=== PATIENT | male | born 1945 | race Caucasian/White ===

== ENCOUNTER → 2016-12-17 | Outpatient (CLI) | payer MEDICARE ==
--- NOTE | 2016-12-17 10:31 | REP ---
LOW-DOSE LUNG SCREENING CT: 12/17/2016. Clinical history: Personal history of nicotine dependence. Findings: There are no prior studies. Low-dose lung CT protocol with lung windows presented at 3 mm slice thickness and interval. Tenant Coordinator image also reviewed. Lung gutierrez are quite well inflated. There are bilateral lateral pleural plaques with pleural thickening. There are a few scattered plaques with calcifications in the anterior right upper and left upper lung zones, along the posterior axillary line in the right mid lung and without evidence of calcified granuloma in the lung. There is a superior segment pleural-based nodule or calcified granuloma on image 53 in left lower lobe in the midclavicular line. Some minor apical scarring is noted. No parenchymal nodules or acute infiltrate. There is some subpleural fibrotic change posterolaterally in the mid and lower lung zones and mild. There is also some mild cylindrical bronchiectatic change with several segmental bronchi equal to or larger than adjacent segmental pulmonary arteries. No acute infiltrate or parenchymal lung mass. No widening of mediastinum. There is atherosclerotic calcification of the coronaries and the aorta. There are a few scattered calcifications. No mediastinal mass evident. Bones show no gross destructive lesion. There is no free air under the diaphragm. Impression: 1. There are some scattered pleural plaques bilaterally, a few with calcifications and one calcified nodule or calcified pleural plaque in the superior segment of the left lower lobe. No definite mediastinal nodes with calcification, lung mass, other pulmonary nodule or acute infiltrate. 2. Study is best categorized as negative, LungRADS category 1. No suspicious nodules or lung mass. Patients with this category have less than 1% probability of malignancy at this time. Recommend annual screening with low-dose CT. Signed by Yury Sultana MD 12/17/2016 04:11 P
== END ==
LOC: M RAD 09:25
PROVIDERS: ATTEND Internal Medicine Pulmonary Disease
DX: Z87.891 Personal history of nicotine dependence (principal); J92.9 Pleural plaque without asbestos

== ENCOUNTER → 2018-01-08 | Outpatient (CLI) | payer MEDICARE | LOC: M RAD 09:39 | DX: Z12.2 Encounter for screening for malignant neoplasm of respiratory organs (principal); Z87.891 Personal history of nicotine dependence; J92.9 Pleural plaque without asbestos; J98.4 Other disorders of lung | CPT/HCPCS: G0297 ==

== ENCOUNTER → 2019-12-21 | Outpatient (CLI) | payer MEDICARE ==
--- NOTE | 2020-01-11 09:22 | REP ---
CT STUDY OF THE CHEST: LOW-DOSE SCREENING STUDY HISTORY: Personal history of nicotine dependence. COMPARISON: CT studies from 01/08/2018 and 12/17/2016. CT FINDINGS: Preliminary digital vrt mechanic radiograph demonstrates median sternotomy wires and some overall hyperinflation. 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 These findings are unchanged. No pleural effusion or pleural-based mass lesion is seen. No significant pulmonary nodule or pulmonary parenchymal mass is observed. No infiltrate is seen. Vascular calcifications again noted. IMPRESSION: Lung-RADS Category 2 findings. Repeat study suggested in one year. MTDD
== END ==
LOC: M RAD 09:45
PROVIDERS: ATTEND Internal Medicine Pulmonary Disease
DX: Z87.891 Personal history of nicotine dependence (principal)

== ENCOUNTER → 2021-01-16 | Outpatient (CLI) | payer MEDICARE ==
--- NOTE | 2021-01-16 14:00 | REP ---
INDICATION: HX OF NICOTINE DEPENDENCE. COMPARISON: Multiple the latest 12/21/2019 also low-dose screening CT of the lungs TECHNIQUE: Axial noncontrast images from the thoracic inlet to the upper abdomen using low-dose lung screening technique (LDCT). As per the protocol only lung window images were sent to the read station for interpretation FINDINGS: There is biapical pleuroparenchymal scarring status quo. Scattered areas of pleural thickening some with calcification is noted status quo. No new abnormal nodules, masses, or opacities have developed. Note is again made of cylindrical bronchiectasis particularly in the lung bases with thickened [place]. This has increased compared to the prior exam. Grossly, the mediastinum and pulmonary wolf are unchanged. Grossly, the imaged upper abdomen and imaged osseous structures are unchanged. IMPRESSION: Chronic lung field changes as described above. There is evidence of new peribronchiolar inflammation the etiology of which is uncertain which needs to be correlated clinically. Additional follow-up may be necessary. Lung rads category 2 S. <Electronically signed by Diomedes Haines > 01/16/21 [id number]
== END ==
LOC: M RAD 09:39
PROVIDERS: ATTEND Internal Medicine Pulmonary Disease
DX: Z87.891 Personal history of nicotine dependence (principal)

== ENCOUNTER → 2022-02-06 | Outpatient (CLI) | payer MEDICARE | LOC: M RAD 10:04 | PROVIDERS: ATTEND Internal Medicine Pulmonary Disease | DX: Z87.891 Personal history of nicotine dependence (principal) ==

== ENCOUNTER → 2022-03-28 | Outpatient (CLI) | payer MEDICARE ==
[~2022-03-28] MED LIST: ALBU2.5V10; ATOR80TA59 PO; ECOT81TA5 PO; FURO20TA2 PO; LISI5TAB11 PO; METO1TAB87 PO; OMEP-173; SPIR1CAP; SYMB16INH; VENTAER
== END ==
LOC: M LABSMTC 09:32
PROVIDERS: ATTEND Anesthesiology
DX: Z01.812 Encounter for preprocedural laboratory examination (principal); Z11.52 Encounter for screening for COVID-19

== ENCOUNTER → 2022-04-04 | Outpatient (CLI) | payer MEDICARE | LOC: M LABSMTC 09:13 | PROVIDERS: ATTEND Anesthesiology | DX: Z01.812 Encounter for preprocedural laboratory examination (principal) ==

== ENCOUNTER 2022-04-09 08:22 | Day surgery (SDC) | payer MEDICARE ==
[~2022-04-09] VITALS: Ht 177.8 cm; Wt 68.2 kg
[~2022-04-09 08:22] MED LIST changes: +BSS IRR 500ML/OMIDRIA 4ML IRR BAG (OR ONLY) As Ordered ONE; +CEFUROXIME 1MG/0.1ML INTRACAMERAL INJ As Ordered ONE; +CYCLOPENTOLATE 1% OPHTH SOLN 2ML BTL OD SCH; +LIDOCAINE 1% 1ML PF SYRINGE (OR EYE CASES) As Ordered ONE; +OFLOXACIN 0.3 % (OCUFLOX) OPTH SOL 5ML OD SCH; +PHENYLEPHRINE 2.5% OPHTH SOL 2ML OD SCH; +PROPARACAINE 0.5% OPHTH SOL 15ML OD ONE; +TROPICAMIDE 1% OPHTH SOLN 15ML OD SCH
[2022-04-09] MEDS ORDERED: MIDAZOLAM INJ 2MG/2ML VIAL As Ordered ONE (09:45)
[2022-04-09] MEDS ORDERED: ESMOLOL INJ 100MG/10ML VIAL As Ordered ONE (10:05)
[2022-04-09 10:18] VITALS: BP 182/93
== END 2022-04-09 10:32 | disposition home or self-care (01) ==
LOC: M SDC 08:22
PROVIDERS: ATTEND Ophthalmology
DX: H25.11 Age-related nuclear cataract, right eye (principal); I25.2 Old myocardial infarction; I10 Essential (primary) hypertension; E78.00 Pure hypercholesterolemia, unspecified; K21.9 Gastro-esophageal reflux disease without esophagitis; J44.9 Chronic obstructive pulmonary disease, unspecified; M19.90 Unspecified osteoarthritis, unspecified site; L30.9 Dermatitis, unspecified; Z87.891 Personal history of nicotine dependence; Z79.899 Other long term (current) drug therapy; Z79.82 Long term (current) use of aspirin; Z79.51 Long term (current) use of inhaled steroids; Z88.8 Allergy status to other drugs, medicaments and biological substances
CPT/HCPCS: 66984; J0697; J1097; V2632

== ENCOUNTER 2022-09-17 06:25 | Day surgery (SDC) | payer MEDICARE ==
[~2022-09-17] VITALS: Ht 177.8 cm; Wt 68.9 kg
[~2022-09-17 06:25] MED LIST changes: -ALBU2.5V10; +ALBU2.5V10 INH; -BSS IRR 500ML/OMIDRIA 4ML IRR BAG (OR ONLY) As Ordered ONE; -CEFUROXIME 1MG/0.1ML INTRACAMERAL INJ As Ordered ONE; -CYCLOPENTOLATE 1% OPHTH SOLN 2ML BTL OD SCH; -LIDOCAINE 1% 1ML PF SYRINGE (OR EYE CASES) As Ordered ONE; -OFLOXACIN 0.3 % (OCUFLOX) OPTH SOL 5ML OD SCH; -OMEP-173; +OMEP-173 PO; -PHENYLEPHRINE 2.5% OPHTH SOL 2ML OD SCH; -PROPARACAINE 0.5% OPHTH SOL 15ML OD ONE; +PROPARACAINE 0.5% OPHTH SOL 15ML OS ONE; -SPIR1CAP; +SPIR1CAP INH; -SYMB16INH; +SYMB16INH INH; -TROPICAMIDE 1% OPHTH SOLN 15ML OD SCH; -VENTAER; +VENTAER INH
[2022-09-17] MEDS ORDERED: BSS IRR 500ML/OMIDRIA 4ML IRR BAG (OR ONLY) As Ordered ONE (06:38)
[2022-09-17] MEDS ORDERED: LIDOCAINE 1% SDV 5ML VIAL As Ordered ONE (06:38)
[2022-09-17] MEDS ORDERED: CEFUROXIME 1MG/0.1ML INTRACAMERAL INJ As Ordered ONE (06:38)
[2022-09-17] MEDS: OFLOXACIN 0.3 % (OCUFLOX) OPTH SOL 5ML OS SCH ×2 (07:11→07:39)
[2022-09-17] MEDS: PHENYLEPHRINE 2.5% OPHTH SOL 2ML OS SCH ×3 (07:11→07:39)
[2022-09-17] MEDS: TROPICAMIDE 1% OPHTH SOLN 15ML OS SCH ×3 (07:11→07:39)
[2022-09-17] MEDS: CYCLOPENTOLATE 1% OPHTH SOLN 2ML BTL OS SCH ×3 (07:11→07:39)
[2022-09-17] MEDS ORDERED: LIDOCAINE 1% SDV 5ML VIAL SC PRN (07:25)
[2022-09-17] MEDS ORDERED: BREO1INH PO (07:50)
[2022-09-17] MEDS ORDERED: MIDAZOLAM INJ 2MG/2ML VIAL As Ordered ONE (08:34)
[2022-09-17] MEDS ORDERED: fentaNYL 100 MCG/2 ML INJECTION As Ordered ONE (08:39)
[2022-09-17 09:01] VITALS: BP 165/89; TEMP 96.8; O2SAT 97
== END 2022-09-17 09:30 | disposition home or self-care (01) ==
LOC: M SDC 06:25
PROVIDERS: ATTEND Ophthalmology
DX: H25.12 Age-related nuclear cataract, left eye (principal); I25.10 Atherosclerotic heart disease of native coronary artery without angina pectoris; I25.2 Old myocardial infarction; J44.9 Chronic obstructive pulmonary disease, unspecified; K21.9 Gastro-esophageal reflux disease without esophagitis; Z88.8 Allergy status to other drugs, medicaments and biological substances; I10 Essential (primary) hypertension; E78.5 Hyperlipidemia, unspecified; Z79.82 Long term (current) use of aspirin; Z79.51 Long term (current) use of inhaled steroids; Z79.899 Other long term (current) drug therapy
CPT/HCPCS: 66984; J0697; J1097; J2250; J3010; V2632

== ENCOUNTER → 2023-03-10 | Outpatient (CLI) | payer MEDICARE ==
[~2023-03-10] MED LIST changes: +BREO1INH PO; -PROPARACAINE 0.5% OPHTH SOL 15ML OS ONE
== END ==
LOC: M RAD 09:52
PROVIDERS: ATTEND Internal Medicine Pulmonary Disease
DX: Z87.891 Personal history of nicotine dependence (principal)

== ENCOUNTER → 2024-04-26 | Outpatient (CLI) | payer MEDICARE | LOC: M RAD 14:38 | PROVIDERS: ATTEND Internal Medicine Pulmonary Disease | DX: Z87.891 Personal history of nicotine dependence (principal); I25.10 Atherosclerotic heart disease of native coronary artery without angina pectoris; I25.84 Coronary atherosclerosis due to calcified coronary lesion; I77.811 Abdominal aortic ectasia ==